=== PATIENT | male | born 1980 | race Caucasian/White ===

== ENCOUNTER 2017-07-26 14:19 | Emergency (ER) | payer OTHER ==
[~2017-07-26] VITALS: Ht 180.3 cm; Wt 118.2 kg
[2017-07-26 14:26] VITALS: BP 135/92; TEMP 97.7
[2017-07-26] MEDS ORDERED: NORCO 325 MG-51 TAB PO (14:52)
[2017-07-26 15:03] VITALS: PULSE 82
== END 2017-07-26 15:03 | disposition home or self-care (01) ==
LOC: COL.ER 14:19
DX: S83.91XA Sprain of unspecified site of right knee, initial encounter (principal); F17.210 Nicotine dependence, cigarettes, uncomplicated; X50.0XXA Overexertion from strenuous movement or load, initial encounter

== ENCOUNTER 2017-11-07 16:49 | Emergency (ER) | payer OTHER ==
[~2017-11-07] VITALS: Ht 180.3 cm; Wt 113.6 kg
[~2017-11-07 16:49] MED LIST: NORCO 325 MG-51 TAB PO
[2017-11-07 16:51] VITALS: BP 143/85; TEMP 98.4
[2017-11-07] MEDS ORDERED: NORCO 325 MG-51 TAB PO (17:52)
[2017-11-07 18:12] VITALS: PULSE 94
== END 2017-11-07 18:12 | disposition home or self-care (01) ==
LOC: COL.ER 16:49
DX: M25.561 Pain in right knee (principal); F17.210 Nicotine dependence, cigarettes, uncomplicated

== ENCOUNTER 2017-12-31 16:42 | Emergency (ER) | payer OTHER ==
[~2017-12-31] VITALS: Ht 180.3 cm; Wt 113.6 kg
[2017-12-31 16:53] VITALS: BP 148/89; TEMP 98.4
[2017-12-31] MEDS ORDERED: NORCO 325 MG-51 TAB PO (17:51)
[2017-12-31 18:00] VITALS: PULSE 77
== END 2017-12-31 18:00 | disposition home or self-care (01) ==
LOC: COL.ER 16:42
DX: G89.29 Other chronic pain (principal); M54.5 Low back pain; F17.210 Nicotine dependence, cigarettes, uncomplicated; Z98.890 Other specified postprocedural states